=== PATIENT | male | born 1975 | race Two or more races ===

== ENCOUNTER 2016-07-13 19:20 | Emergency (ER) | payer MEDICAID ==
--- NOTE | 2016-07-13 19:39 | EDM.PDOC ---
ED HISTORY OF PRESENT ILLNESS - General Chief Complaint: Chest Pain Stated Complaint: CP Time Seen by Provider: 07/13/16 19:22 Source of Information: Reports: Patient History Limitations: Reports: No limitations - History of Present Illness INITIAL COMMENTS - FREE TEXT/NARRATIVE: This patient is a 41 year old male that presents to the ER. Patient reports that at about 12:30 today he began to have left sided chest pain with shortness of breath, and nausea. He reports then the chest pain moved across his right chest then into his right arm. Patient reports that he did have some sternum chest pain that is tender as well. Patient reports that his chest pain has completely resolved, as has his nausea. Patient reports tht he has a history of having back, neck pain into his legs that is chronic and feels maybe this pain moved into his chest today. Patient reports he became concerned when the pain moved into his right arm. Patient denies any cardiac or family cardiac history. Patient is alert and oriented. Patent is conversing in full and complete sentences without difficulty. Patient does appear anxious. Patient denies any specific injury. Symptom Onset Date: 07/13/16 Symptom Onset Time: 12:30 Severity: mild Location, General: Reports: chest, lower extremity, right Quality: Reports: Ache Improves with: Reports: None Worsens with: Reports: Movement (in central chest per patient.) Associated Symptoms (General): Reports: chest pain, nausea/vomiting, shortness of breath. Denies: confusion, cough, cough w sputum, diaphoresis, fever/chills , headaches, loss of appetite, malaise, rash, seizure, syncope, weakness - Related Data Allergies/ADRs: Allergies Allergy/AdvReac Type Severity Reaction Status Date / Time No Known Allergies Allergy Verified 07/13/16 19:30 Home Meds: Home Meds Gabapentin [Gabapentin] 1,200 mg PO TID 07/13/16 [History] ED ROS GENERAL - Review of Systems Review Of Systems: See Below Constitutional: Reports: no symptoms HEENT: Reports: No symptoms Respiratory: Reports: shortness of breath Cardiovascular: Reports: Chest pain (resolved) Endocrine: Reports: no symptoms GI/Abdominal: Reports: Nausea (resolved) : Reports: no symptoms Musculoskeletal: Reports: no symptoms Skin: Reports: no symptoms Neurological: Reports: no symptoms Psychiatric: Reports: No symptoms Hematologic/Lymphatic: Reports: no symptoms Immunologic: Reports: no symptoms ED EXAM, GENERAL - Physical Exam Exam: See Below Exam Limited By: No limitations General Appearance: alert, WD/WN, no apparent distress, anxious Eye Exam: bilateral eye: normal inspection, PERRL Ears: normal external exam, normal canal, hearing grossly normal, normal TMs Ear Exam: bilateral ear: auricle normal, canal normal, TM normal Nose: normal inspection, normal mucosa, no blood Throat/Mouth: Normal inspection, Normal lips, Normal teeth, Normal gums, Normal oropharynx, Normal voice, No airway compromise Head: atraumatic, normocephalic Neck: normal inspection, supple, non-tender, full range of motion Respiratory/Chest: no respiratory distress, lungs clear, normal breath sounds, no accessory muscle use, other (mild tenderness over distal sternum per patient. ) Cardiovascular: normal peripheral pulses, regular rate, rhythm, no edema, no gallop, no JVD, no murmur, no rub Peripheral Pulses: 2+: radial (L), radial (R), posterior tibial (L), posterior tibial (R), dorsalis pedis (L), dorsalis pedis (R) GI/Abdominal: soft, non tender Back Exam: normal inspection, full range of motion Extremities: normal inspection, normal range of motion, non-tender, no pedal edema, normal capillary refill Neurological: alert, oriented, no motor/sensory deficits Psychiatric: normal mood, anxious Skin Exam: Warm, Dry, Intact, Normal color, No rash, Tattoo(s) Lymphatic: no adenopathy EKG INTERPRETATION EKG Date: 07/13/16 Time: 19:27 Rhythm: NSR Rate (beats/min): 76 [place]: normal P-wave: present QRS: normal ST-T: normal QT: normal Comparison: NA - no prior EKG Course - Vital Signs Last Recorded V/S: Last Vital Signs Temp 98.8 F 07/13/16 19:32 Pulse 78 07/13/16 19:59 Resp 18 07/13/16 19:59 BP 137/87 07/13/16 19:59 Pulse Ox 96 07/13/16 19:59 - Orders/Labs/Meds Orders: Active Orders 24 hr Category Date Time Status EKG Documentation Completion [RC] STAT Care 07/13/16 19:36 Active Chest 2V [CR] Stat Exams 07/13/16 19:35 Taken Labs: Laboratory Tests 07/13/16 07/13/16 Range/Units 19:42 19:42 WBC 9.0 (5.0-10.0) 10^3/uL RBC 5.27 (4.50-6.00) 10^6/uL Hgb 17.1 (14.0-18.0) g/dL Hct 45.1 (40.0-54.0) % MCV 85.6 (82.0-94.0) fL MCH 32.4 H (27.0-32.0) pg MCHC 37.9 (33.0-38.0) g/dL RDW Coeff of Eric 13.1 (11.0-15.0) % Plt Count 183 (150-400) 10^3/uL Neut % (Auto) 60.4 (35-85) % Lymph % (Auto) 27.9 (10-55) % [place] % (Auto) 9.2 (0-16) % Eos % (Auto) 2.1 (0-5) % Baso % (Auto) 0.4 (0-3) % Neut # 5.45 (1.80-7.00) 10^3/uL Lymph # 2.52 (1.00-4.80) 10^3/uL [place] # 0.83 H (0.00-0.80) 10^3/uL Eos # 0.19 (0.00-0.45) 10^3/uL Baso # 0.04 10^3/uL Sodium 137 (136-145) mEq/L Potassium 3.9 (3.5-5.0) mEq/L Chloride 100 (98-106) mEq/L Carbon Dioxide 19 L (21-32) mmol/L BUN 10 (7-18) mg/dL Creatinine 0.7 (0.7-1.3) mg/dL Est Cr Clr Drug Dosing 127.85 mL/min Estimated GFR (MDRD) > 60 (>=60) mL/min Glucose 245 H (75-99) mg/dL Calcium 8.1 L (8.4-10.1) mg/dL Total Bilirubin 0.8 (0.0-1.0) mg/dL AST 42 H (15-37) U/L ALT 36 (12-78) U/L Alkaline Phosphatase 67 (46-116) U/L Creatine Kinase 267 H (35-232) U/L Troponin I < 0.017 (0.00-0.06) ng/mL [id number] Pept 6 (0-1000) pg/nL Total Protein 7.8 (6.4-8.2) g/dL Albumin 3.8 (3.4-5.0) g/dL - Radiology Interpretation Free Text/Narrative:: CXR: no infiltrates, no cardiomegaly, no pulmoary edema. - Re-Assessments/Exams Free Text/Narrative Re-Assessment/Exam: 07/13/16 20:34 Patient reports he no longer has chest pain, shortness of breath, or nausea. Symptoms completely resolved. He has negative EKG and troponin, will discharge. Departure - Departure Time of Disposition: 20:33 Disposition: Home, Self-Care 01 Condition: good Clinical Impression: Atypical chest pain Instructions: Nonspecific Chest Pain, [id number] Forms: ED Department Discharge Additional Instructions: Followup with your primary care provider Return to the ER for worsening of condition or any emergent concerns Increase fluids - My Orders Last 24 Hours: My Active Orders 07/13/16 19:35 Chest 2V [CR] Stat 07/13/16 19:36 EKG Documentation Completion [RC] STAT - Assessment/Plan Last 24 Hours: My Active Orders 07/13/16 19:35 Chest 2V [CR] Stat 07/13/16 19:36 EKG Documentation Completion [RC] STAT Plan: PLEASE SEE RN NOTE FOR PFSH.
[2016-07-13 20:00] VITALS: BP 137/87
[2016-07-13 20:07] LABS: CHLORIDE,CL 100 mEq/L (98-106); SODIUM,NA 137 mEq/L (136-145)
== END 2016-07-13 21:00 | disposition home or self-care (01) ==
LOC: CC.ED 19:20
DX: R07.89 Other chest pain (principal)
CPT/HCPCS: 36415; 71020; 80053; 82550; 83880; 84484; 85025; 93005; 99285

== ENCOUNTER 2018-11-19 09:27 | Emergency (ER) | payer OTHER ==
[2018-11-19] MEDS ORDERED: Ondansetron 4 MG/2 ML SDV IVPUSH PRN (09:53)
[2018-11-19] MEDS ORDERED: fentaNYL 100 MCG/2 ML SDV IVPUSH ONE (09:53)
[2018-11-19] MEDS ORDERED: Sodium Chloride 0.9% 1,000 ML IV ONE (09:53)
[2018-11-19] MEDS ORDERED: Ketorolac 30 MG/ML SDV IVPUSH ONE (09:53)
[2018-11-19 11:35] VITALS: BP 133/74; PULSE 60
[2018-11-19 12:22] LABS: HEMOGLOBIN A1C 7.1 % (4.8-6.2)
--- NOTE | 2018-11-19 12:50 | EDM.PDOC ---
ED HPI GENERAL MEDICAL PROBLEM - General Chief Complaint: General Stated Complaint: PAIN/SWEATING/VOMITTING Time Seen by Provider: 11/19/18 09:49 Source of Information: Reports: Patient History Limitations: Reports: No Limitations - History of Present Illness INITIAL COMMENTS - FREE TEXT/NARRATIVE: Carlyle is a 43 yo male who presents to the ED via private vehicle with complaints of right flank pain. States the pain started in the middle of the night and has progressively gotten worse. Pain seems to come and go and will get so bad that it has caused him to vomit. States the pain will wax and wane. Denies any history of kidney stones but states he had the same thing once on the left side. He did come into the ED but nothing was found per patient. States he does drink a lot of soda every day. He did drink alcohol yesterday for the holiday and wonders if this has anything to do with. Right flank Pain Score (Numeric/FACES): 10 - Related Data Allergies Allergy/AdvReac Type Severity Reaction Status Date / Time No Known Allergies Allergy Verified 11/19/18 09:36 Home Meds: Home Meds . [No Known Home Meds] 11/19/18 [History] Past Medical History - Past Surgical History HEENT Surgical History: Reports: Tonsillectomy Social & Family History - Family History Cardiac: Reports: [place] Other Cardiac Family History: PT MOTHER OF [place] 2003 AT 54YO HER 2ND [place] Endocrine/Metabolic: Reports: Diabetes, type II - Tobacco Use Smoking Status *Q: Current Every Day Smoker Years of Tobacco use: 15 Packs/Tins Daily: 0.5 - Caffeine Use Caffeine Use: Reports: Coffee, Soda ED ROS GENERAL - Review of Systems Review Of Systems: See Below Constitutional: Reports: Chills, Decreased Appetite. Denies: Fever HEENT: Reports: No Symptoms Respiratory: Reports: No Symptoms Cardiovascular: Reports: No Symptoms GI/Abdominal: Reports: Diarrhea. Denies: Bloody Stool : Reports: Flank Pain (right). Denies: Discharge, Dysuria, Frequency, Hematuria, Incontinence Musculoskeletal: Reports: No Symptoms Skin: Reports: No Symptoms Neurological: Reports: No Symptoms ED EXAM, GENERAL - Physical Exam Exam: See Below Exam Limited By: No Limitations General Appearance: Alert, Mild Distress, Moderate Distress Ears: Normal External Exam, Normal Canal, Hearing Grossly Normal, Normal TMs Nose: Normal Inspection, Normal Mucosa, No Blood Throat/Mouth: Normal Inspection, Normal Lips, Normal Teeth, Normal Gums, Normal Oropharynx, No Airway Compromise Head: Atraumatic, Normocephalic Neck: Normal Inspection, Supple Respiratory/Chest: No Respiratory Distress, Lungs Clear, Normal Breath Sounds, No Accessory Muscle Use Cardiovascular: Regular Rate, Rhythm, No Murmur GI/Abdominal: No Organomegaly, No Distention, No Mass, Tender (righ lateral lower to mid quadrant), Other (negative Mcburney's point). No: Distended Back Exam: CVA Tenderness (R). No: CVA Tenderness (L) Neurological: Alert, Oriented, Normal Cognition, No Motor/Sensory Deficits Skin Exam: Warm, Dry, Intact, Normal Color, No Rash Course - Vital Signs Last Recorded V/S: Last Vital Signs Temp 97 F 11/19/18 11:34 Pulse 60 11/19/18 11:34 Resp 20 11/19/18 11:34 BP 133/74 11/19/18 11:34 Pulse Ox 98 11/19/18 11:34 - Orders/Labs/Meds Orders: Active Orders 24 hr Category Date Time Status Abdomen Pelvis wo Cont [CT] Stat Exams 11/19/18 10:39 Taken C-REACTIVE PROTEIN [CHEM] Stat Lab 11/19/18 10:03 Results COMPREHENSIVE METABOLIC PN,CMP [CHEM] Stat Lab 11/19/18 10:03 Results LIPASE [CHEM] Stat Lab 11/19/18 10:03 Results Ondansetron [Zofran] Med 11/19/18 09:53 Active 4 mg IVPUSH Q6H PRN Medication Orders Ondansetron HCl (Zofran) 4 mg IVPUSH Q6H PRN PRN Reason: Vomiting Last Admin: 11/19/18 10:02 Dose: 4 mg Labs: Laboratory Tests 11/19/18 11/19/18 11/19/18 Range/Units 10:00 10:03 10:03 WBC 11.3 H (5.0-10.0) 10^3/uL RBC 5.17 (4.50-6.00) 10^6/uL Hgb 16.5 (14.0-18.0) g/dL Hct 44.0 (40.0-54.0) % MCV 85.1 (82.0-94.0) fL MCH 31.9 (27.0-32.0) pg MCHC 37.5 (33.0-38.0) g/dL RDW Coeff of Eric 12.8 (11.0-15.0) % Plt Count 177 (150-400) 10^3/uL Neut % (Auto) 75.5 (35-85) % Lymph % (Auto) 16.3 (10-55) % [place] % (Auto) 7.4 (0-16) % Eos % (Auto) 0.5 (0-5) % Baso % (Auto) 0.3 (0-3) % Neut # (Auto) 8.50 H (1.80-7.00) 10^3/uL Lymph # (Auto) 1.84 (1.00-4.80) 10^3/uL [place] # (Auto) 0.83 H (0.00-0.80) 10^3/uL Eos # (Auto) 0.06 (0.00-0.45) 10^3/uL Baso # (Auto) 0.03 10^3/uL Carbon Dioxide 13 L (21-32) mmol/L BUN 17 D (7-18) mg/dL Creatinine 1.0 (0.7-1.3) mg/dL Est Cr Clr Drug Dosing 97.21 mL/min Estimated GFR (MDRD) > 60 (>=60) mL/min Glucose 262 H (75-99) mg/dL Hemoglobin A1c 7.1 H (4.8-6.2) % Calcium 8.5 (8.4-10.1) mg/dL Total Bilirubin 0.7 (0.0-1.0) mg/dL AST 58 H (15-37) U/L ALT 47 (12-78) U/L Alkaline Phosphatase 73 (46-116) U/L C-Reactive Protein < 0.2 L (0.2-0.8) mg/dL Total Protein 7.1 (6.4-8.2) g/dL Albumin 3.8 (3.4-5.0) g/dL Lipase 87 (73-393) U/L Urine Color (YELLOW) Urine Appearance (CLEAR) Urine pH (4.5-8.0) Ur Specific [place] (1.003-1.020) Urine Protein (NEGATIVE) mg/dL Urine Glucose (UA) (NEGATIVE) mg/dL Urine Ketones (NEGATIVE) mg/dL Urine Occult Blood (NEGATIVE) Urine Nitrite (NEGATIVE) Urine Bilirubin (NEGATIVE) Urine Urobilinogen (0.2-1.0) EU/dL Ur Leukocyte Esterase (NEGATIVE) Urine RBC (0-5) /HPF Urine WBC (0-5) /HPF Ur Squamous Epith Cells (NOT SEEN) /HPF Calcium Oxalate Crystal (NOT SEEN) /HPF 11/19/18 Range/Units 10:30 WBC (5.0-10.0) 10^3/uL RBC (4.50-6.00) 10^6/uL Hgb (14.0-18.0) g/dL Hct (40.0-54.0) % MCV (82.0-94.0) fL MCH (27.0-32.0) pg MCHC (33.0-38.0) g/dL RDW Coeff of Eric (11.0-15.0) % Plt Count (150-400) 10^3/uL Neut % (Auto) (35-85) % Lymph % (Auto) (10-55) % [place] % (Auto) (0-16) % Eos % (Auto) (0-5) % Baso % (Auto) (0-3) % Neut # (Auto) (1.80-7.00) 10^3/uL Lymph # (Auto) (1.00-4.80) 10^3/uL [place] # (Auto) (0.00-0.80) 10^3/uL Eos # (Auto) (0.00-0.45) 10^3/uL Baso # (Auto) 10^3/uL Carbon Dioxide (21-32) mmol/L BUN (7-18) mg/dL Creatinine (0.7-1.3) mg/dL Est Cr Clr Drug Dosing mL/min Estimated GFR (MDRD) (>=60) mL/min Glucose (75-99) mg/dL Hemoglobin A1c (4.8-6.2) % Calcium (8.4-10.1) mg/dL Total Bilirubin (0.0-1.0) mg/dL AST (15-37) U/L ALT (12-78) U/L Alkaline Phosphatase (46-116) U/L C-Reactive Protein (0.2-0.8) mg/dL Total Protein (6.4-8.2) g/dL Albumin (3.4-5.0) g/dL Lipase (73-393) U/L Urine Color Dark yellow (YELLOW) Urine Appearance Clear (CLEAR) Urine pH 5.5 (4.5-8.0) Ur Specific [place] >= 1.030 H (1.003-1.020) Urine Protein 100 H (NEGATIVE) mg/dL Urine Glucose (UA) 500 H (NEGATIVE) mg/dL Urine Ketones 15 H (NEGATIVE) mg/dL Urine Occult Blood Large H (NEGATIVE) Urine Nitrite Negative (NEGATIVE) Urine Bilirubin Negative (NEGATIVE) Urine Urobilinogen 0.2 (0.2-1.0) EU/dL Ur Leukocyte Esterase Negative (NEGATIVE) Urine RBC 20-30 H (0-5) /HPF Urine WBC Not seen (0-5) /HPF Ur Squamous Epith Cells Few H (NOT SEEN) /HPF Calcium Oxalate Crystal Moderate H (NOT SEEN) /HPF Meds: Medications Generic Name Dose Route Start Last Admin Trade Name Freq PRN Reason Stop Dose Admin Ondansetron HCl 4 mg 11/19/18 09:53 11/19/18 10:02 Zofran IVPUSH 4 mg Q6H PRN Administration Vomiting Discontinued Medications Generic Name Dose Route Start Last Admin Trade Name Freq PRN Reason Stop Dose Admin Fentanyl 50 mcg 11/19/18 09:53 11/19/18 10:08 Sublimaze IVPUSH 11/19/18 09:54 50 mcg ONETIME ONE Administration Sodium Chloride 1,000 mls @ 999 mls/hr 11/19/18 09:53 11/19/18 10:02 Normal Saline IV 11/19/18 10:53 999 mls/hr .BOLUS ONE Administration Ketorolac Tromethamine 30 mg 11/19/18 09:53 11/19/18 10:05 Toradol IVPUSH 11/19/18 09:54 30 mg ONETIME ONE Administration Departure - Departure Time of Disposition: 12:52 Disposition: Home, Self-Care 01 Clinical Impression: Right nephrolithiasis, Elevated blood sugar level - Discharge Information Instructions: Preventing Type 2 Diabetes Mellitus, Prediabetes Eating Plan, Kidney Stones Referrals: Jaspreet Hall PA-C [Emergency Provider] - 2 Weeks Additional Instructions: 1) [facility] 5/325 - 1 tablet every 8 hours as needed for break thru pain 2) Ketorolac 10mg - 1 tablet every 8 hours as needed for pain 3) Flomax 0.4mg - 1 tablet daily until stone passes 4) Handout on kidney stone as well 5) Advise if any fevers, increased vomiting, etc... recommend returning for reevaluation 6) Likely will pass stone on your own as it is 2mm in diameter 7) Diet discussed today, handout for diabetes attached. 8) Recommend lifestyle changes as discussed and follow up in clinic in 1-2 weeks for labs, etc... - Problem List & Annotations (1) Elevated blood sugar level SNOMED Code(s): 98653797 Code(s): R73.9 - HYPERGLYCEMIA, UNSPECIFIED Status: Acute Current Visit: Yes (2) Right nephrolithiasis SNOMED Code(s): 30824922 Code(s): N20.0 - CALCULUS OF KIDNEY Status: Acute Current Visit: Yes - My Orders Last 24 Hours: My Active Orders 11/19/18 09:53 Ondansetron [Zofran] 4 mg IVPUSH Q6H PRN 11/19/18 10:03 C-REACTIVE PROTEIN [CHEM] Stat COMPREHENSIVE METABOLIC PN,CMP [CHEM] Stat LIPASE [CHEM] Stat 11/19/18 10:39 Abdomen Pelvis wo Cont [CT] Stat - Assessment/Plan Last 24 Hours: My Active Orders 11/19/18 09:53 Ondansetron [Zofran] 4 mg IVPUSH Q6H PRN 11/19/18 10:03 C-REACTIVE PROTEIN [CHEM] Stat COMPREHENSIVE METABOLIC PN,CMP [CHEM] Stat LIPASE [CHEM] Stat 11/19/18 10:39 Abdomen Pelvis wo Cont [CT] Stat Plan: CT of the abd/pelvis did show 2mm stone in proximal ureter with mild hydronephrosis. After IV medications, Carlyle's pain had subsided. Will send home with medications. Blood sugar was elevated today and A1c was slightly elevated at 7.1 as well. I did discuss lifestyle changes with diet and exercise. Will have him follow up in clinic in 1-2 weeks. Hand outs on kidney stones and diabetes given to patient today.
[2018-11-20 10:52] LABS: CHLORIDE,CL 103 mEq/L (98-106); SODIUM,NA 136 mEq/L (136-145)
== END 2018-11-19 13:05 | disposition home or self-care (01) ==
LOC: CC.ED 09:27
DX: N20.0 Calculus of kidney (principal); E11.65 Type 2 diabetes mellitus with hyperglycemia; F17.210 Nicotine dependence, cigarettes, uncomplicated
CPT/HCPCS: 36415; 74176; 80053; 81001; 83036; 83690; 85025; 86140; 96361; 96374; 96375; 99284; J1885; J2405; J3010; J7030